=== PATIENT | female | born 1940 | race Caucasian/White ===

== ENCOUNTER 2018-08-12 08:51 | Emergency (ER) | payer MEDICARE, MEDICAID ==
[2018-08-12 08:56] VITALS: TEMP 97.5; O2SAT 99; BMI 27.4
--- NOTE | 2018-08-12 09:42 | ED PDOC ---
HPI: General Adult Time Seen by Provider: 08/12/18 09:01 Chief Complaint (Nursing): Upper Extremity Problem/Injury Chief Complaint (Provider): Left shoulder and left leg pain History Per: Patient History/Exam Limitations: no limitations Onset/Duration Of Symptoms: Days Current Symptoms Are (Timing): Still Present Additional Complaint(s): 78 year old female with history of HTN, depression and arthritis was brought to the ED via EMS for an evaluation of left shoulder pain onset today. Patient also reports of pain upon palpation on left leg. Denies fever, vomiting or numbness. PMD: Gamaliel Felipe Past Medical History Reviewed: Historical Data, Nursing Documentation, Vital Signs Vital Signs: Last Vital Signs Temp 97.5 F L 08/12/18 08:56 Pulse 84 08/12/18 08:56 Resp 20 08/12/18 08:56 BP 129/78 08/12/18 08:56 Pulse Ox 99 08/12/18 08:56 - Medical History PMH: Alzheimer's Disease, Anemia, Anxiety, Arthritis, Dementia, Depression, Diverticulitis, HIV, HTN, Osteoporosis Denies: CHF, COPD, Hypercholesterolemia, Hypothyroidism, Chronic Kidney Disease, Rheumatoid Arthritis - Family History Family History: States: Unknown Family Hx - Social History Current smoker - smoking cessation education provided: No Alcohol: None Drugs: Denies - Immunization History Hx Tetanus Toxoid Vaccination: No Hx Influenza Vaccination: No Hx Pneumococcal Vaccination: No - Home Medications Home Medications: Ambulatory Orders Medication Instructions Recorded Atorvastatin [Lipitor] 10 mg PO DAILY 03/20/16 Diclofenac Sodium [Voltaren] 1 appl TOP QID 03/20/16 Diclofenac Sodium [Voltaren] 75 mg PO DAILY 03/20/16 Emtricita/Rilpivirine/Tenof Df 1 tab PO DAILY 03/20/16 [Complera Tablet] Enalapril Maleate [Vasotec] 10 mg PO DAILY 03/20/16 FLUoxetine [Prozac] 20 mg PO QAM 03/20/16 Gabapentin [Neurontin] 300 mg PO TID 03/20/16 Iron/Folate No.6/Mv,Mins No.40 1 tab PO DAILY 03/20/16 [Corvite Fe Tablet] Naproxen [Naprosyn] 500 mg PO BID 03/20/16 Cyclobenzaprine [Cyclobenzaprine 10 mg PO TID #15 tab 03/21/16 HCl] Oxycodone HCl/Acetaminophen 1 tab PO Q6 PRN #10 tab 03/21/16 [Percocet 325 mg-5 mg] oxyCODONE/Acetaminophen [Percocet 1 ea PO TID PRN #6 tab 06/24/16 5/325 mg Tab] - Allergies Allergies/Adverse Reactions: Allergies Allergy/AdvReac Type Severity Reaction Status Date / Time No Known Allergies Allergy Verified 06/18/14 16:27 Review of Systems ROS Statement: Except As Marked, All Systems Reviewed And Found Negative Constitutional: Negative for: Fever Gastrointestinal: Negative for: Nausea, Vomiting, Abdominal Pain, Diarrhea Musculoskeletal: Positive for: Shoulder Pain (left), Leg Pain (left) Neurological: Negative for: Weakness, Numbness Physical Exam - Reviewed Nursing Documentation Reviewed: Yes Vital Signs Reviewed: Yes - Physical Exam Appears: Positive for: Non-toxic, No Acute Distress Head Exam: Positive for: ATRAUMATIC, NORMAL INSPECTION, NORMOCEPHALIC Skin: Positive for: Normal Color, Warm, Dry. Negative for: Rash Eye Exam: Positive for: EOMI, Normal appearance, PERRL ENT: Positive for: Normal ENT Inspection Neck: Positive for: Normal, Painless ROM, Supple. Negative for: Decreased ROM Cardiovascular/Chest: Positive for: Regular Rate, Rhythm. Negative for: Murmur Respiratory: Positive for: Normal Breath Sounds. Negative for: Decreased Breath Sounds, Wheezing, Respiratory Distress Gastrointestinal/Abdominal: Positive for: Normal Exam, Soft. Negative for: Tenderness, Guarding, Rebound Extremity: Positive for: Normal ROM, Tenderness (left shoulder), Other (pain upon palpation on left leg). Negative for: Pedal Edema, Deformity Neurologic/Psych: Positive for: Alert, Oriented (x3). Negative for: Motor/S ensory Deficits (good strength upper and lower extremities) - Laboratory Results Result Diagrams: 08/12/18 10:00 08/12/18 10:00 - ECG O2 Sat by Pulse Oximetry: 99 (RA) Pulse Ox Interpretation: Normal Medical Decision Making Medical Decision Making: Time: 940 Initial Plan: CMP CBC w/ Differential Chest Two Views [RAD] Toradol 30mg IV Insertion Hip Left [RAD] Reevaluation Scribe Attestation: Documented by Haider Somers, acting as a scribe for Génesis Coyne MD. Provider Scribe Attestation: All medical record entries made by the Scribe were at my direction and personally dictated by me. I have reviewed the chart and agree that the record accurately reflects my personal performance of the history, physical exam, medical decision making, and the department course for this patient. I have also personally directed, reviewed, and agree with the discharge instructions and disposition. Disposition - Clinical Impression Clinical Impression: DJD (degenerative joint disease) - Patient ED Disposition Is Patient to be Admitted: No Doctor Will See Patient In The: Office Counseled Patient/Family Regarding: Diagnosis, Need For Followup - Disposition Referrals: Gamaliel Felipe MD [Family Provider] - Disposition: Routine/Home Disposition Time: 11:00 Condition: STABLE Additional Instructions: Continue with medicines for pain that you have at home. Keep your appointment with Dr. Felipe Instructions: Osteoarthritis Forms: [facility] ([employer]) Print Language: MICRONESIAN - POA Present On Arrival: None
[2018-08-12 10:11] LABS: BASO # 0.1 K/uL (0.0-0.2); EOS # 0.1 K/uL (0.0-0.7); EOS % 1.5 % (0.0-4.0); HEMOGLOBIN 13.8 g/dL (12.0-16.0); LYMPH # 1.6 K/uL (1.0-4.3); LYMPH % 30.6 % (20.0-40.0); MEAN CELL VOLUME 94.5 fl (81.0-99.0); MEAN CORPUSCULAR HEMOGLOBIN 31.5 pg (27.0-31.0); MEAN CORPUSCULAR HGB CONC 33.3 g/dL (33.0-37.0); MEAN PLATELET VOLUME 7.9 fl (7.2-11.7); MONO # 0.4 K/uL (0.0-0.8); MONO % 7.6 % (0.0-10.0); NEUT # 3.2 K/uL (1.8-7.0); NEUT % 59.3 % (50.0-75.0); NRBC % 0.1 % (0.0-0.0); RBC 4.37 Mil/uL (3.80-5.20); RED CELL DISTRIBUTION WIDTH 13.6 % (11.5-14.5); WHITE BLOOD COUNT 5.3 K/uL (4.8-10.8)
[2018-08-12 10:22] LABS: ALB/GLOB RATIO 1.1 (1.0-2.1); ALT/SGPT 31 U/L (9-52); AST/SGOT 33 U/L (14-36); BLOOD UREA NITROGEN 10 mg/dl (7-17); CALCIUM 9.1 mg/dL (8.4-10.2); GFR NON-AFRICAN AMERICAN 54
--- NOTE | 2018-08-12 11:02 | RAD ---
PROCEDURE: Left Hip X-ray Radiographs. HISTORY: pain COMPARISON: None. FINDINGS: BONES: No acute fracture or destructive bony lesion identified. JOINTS: No dislocation of the left hip joint. Degenerative sacroiliac and hip joint changes are identified. SOFT TISSUES: Vascular calcification identified in the inferior pelvic soft tissues left greater than right with injection granuloma identified in the bilateral buttock soft tissues further. OTHER FINDINGS: Pelvic ring appears intact without fracture or pubic symphysis distraction. IMPRESSION: No definite fracture dislocation left hip joint. Degenerative changes seen incidentally at the bilateral hip and sacroiliac joints as per above.
--- NOTE | 2018-08-12 11:05 | RAD ---
Date of service: 08/12/2018 HISTORY: left shoulder pain COMPARISON: No prior. TECHNIQUE: Chest PA and lateral FINDINGS: LUNGS: Limited patchy density is question at the inferior left lung zone with remaining lung pastrana clear. PLEURA: No significant pleural effusion identified. No pneumothorax apparent. CARDIOVASCULAR: Calcific atherosclerotic changes are seen related to the thoracic aorta. Stable cardiomediastinal silhouette. No pulmonary vascular congestion appreciable. OSSEOUS STRUCTURES: No significant abnormalities. VISUALIZED UPPER ABDOMEN: Normal. OTHER FINDINGS: None. IMPRESSION: Limited patchy infiltrate questioned left base, though this is a feature seen primarily in the frontal projection. Clinically correlate further. The remainder the examination appears unremarkable.
[2018-08-12 11:41] VITALS: BP 132/86; PULSE 86; RESP 18
== END 2018-08-12 11:46 | disposition home or self-care (01) ==
LOC: H.ER 08:51
DX: M19.012 Primary osteoarthritis, left shoulder (principal)
CPT/HCPCS: 71046; 73501; 80053; 85025; 96374; 99284; J1885